=== PATIENT | female | born 1975 | race Caucasian/White ===

== ENCOUNTER 2016-11-18 12:05 | Emergency (ER) | payer MEDICAID, OTHER ==
[~2016-11-18] VITALS: Ht 157.5 cm; Wt 86.0 kg
[2016-11-18 12:21] VITALS: Ht 157.5 cm; Wt 86.0 kg
--- NOTE | 2016-11-18 13:41 | ERA ---
ER Documentation Chief Complaint Date/Time DATE: 11/18/16 TIME: 13:28 Chief Complaint fatigue x 5 days, denies chest pain HPI Otherwise healthy 41-year-old female presenting with a chief complaint of shortness of breath and fatigue 5 days. Patient denies chest pain/angina, medical conditions, medications, headache, meningismus, similar symptoms in past. Patient was evaluated by urgent care however she wanted to come to the ED to see if her heart was okay. Requesting EKG. No prior thromboembolism event. No family history of cardiopulmonary disorders. No other complaints. Describes no other associated manifestations ROS All systems reviewed and are negative except as per history of present illness. Allergies Allergies: Coded Allergies: No Known Allergy (Verified Allergy, Unknown, 04/15/09) PMhx/Soc Medical and Surgical Hx: pt denies Medical Hx, pt denies Surgical Hx Hx Alcohol Use: No Hx Substance Use: No Hx Tobacco Use: No Smoking Status: Never smoker Physical Exam Vitals Vital Signs Date Time Temp Pulse Resp B/P Pulse Ox O2 Delivery O2 Flow Rate FiO2 11/18/16 12:21 98.3 100 18 187/102 98 Physical Exam Const: Obese 41-year-old female in no acute distress. Head: Atraumatic Eyes: Normal Conjunctiva ENT: Normal External Ears, Nose and Mouth. Neck: Full range of motion..~ No meningismus. Resp: Clear to auscultation bilaterally Cardio: Regular rate and rhythm, no murmurs Abd: Soft, non tender, non distended. Normal bowel sounds Skin: No petechiae or rashes Back: No midline or flank tenderness Ext: No cyanosis, or edema Neur: Awake and alert Psych: Normal Mood and Affect Procedures/MDM Well-appearing 41-year-old female in no acute distress presenting requesting EKG for shortness of breath. Was evaluated at urgent care and discharged with the diagnosis of fatigue. Patient denies chest pain. Physical exam was unremarkable with no evidence of endorgan damage. Patient was neurovascularly intact bilaterally. Cap refill less than 2 seconds. EKG was taken and read by my attending as normal sinus rhythm, normal axis, no T-wave abnormalities, no ST elevation or depression with good baseline. Most likely diagnosis is fatigue and in agreement with the urgent care. I spoken to my attending who is in agreement with the assessment and plan. At this time I have little suspicion for ACS, pneumonia, anemia, hypertensive urgency/emergency, or airway obstructive disorders. Patient's vitals are stable and her current condition is appropriate for discharge. Patient will be discharged with discharge instructions with return precautions, as well as recommendation to follow-up with PCP in the next 2-3 days for further evaluation and possible referral to a specialist. Patient is verbally responded that she understands her current status, and agrees with the plan of management. Departure Diagnosis: Primary Impression: Fatigue Qualified Code: R53.82 - Chronic fatigue Condition: Stable Additional Instructions: Follow up with your PCP within the next 1-3 days for a more thorough evaluation and a possible referral to a specialist. Return the the emergency department immediately if symptoms worsen or change. If you have any questions regarding medications, ask your pharmacist or us before you leave. If any adverse reactions occur while taking your medications, discontinue the treatment and return to the emergency department immediately. Take your medications as directed, and complete the entire course of treatment. JEFF HINOJOSA PA-C Nov 18, 2016 13:39
[2016-11-18 14:02] VITALS: BP 177/102
== END 2016-11-18 14:04 | disposition home or self-care (01) ==
LOC: FTE 12:05
DX: R53.82 Chronic fatigue, unspecified (principal)
CPT/HCPCS: 93005; Z7502